=== PATIENT | male | born 1985 | race Caucasian/White ===

== ENCOUNTER 2017-11-04 02:44 | Emergency (ER) | payer BC, SELFPAY ==
[2017-11-04] MEDS ORDERED: Ketorolac Tromethamine 30 MG/ML VIAL ONE (03:12)
== END 2017-11-04 03:31 | disposition home or self-care (01) ==
LOC: SCSER 02:44
DX: G56.91 Unspecified mononeuropathy of right upper limb (principal); F17.210 Nicotine dependence, cigarettes, uncomplicated
CPT/HCPCS: 96372; J1885

== ENCOUNTER 2018-07-09 01:04 | Observation (INO) | payer SELFPAY ==
[2018-07-09] MEDS ORDERED: Fentanyl 100 MCG/2 ML VIAL ONE ×4 (02:05→12:38)
[2018-07-09] MEDS ORDERED: Morphine 4 MG/ML Carpuject ONE ×2 (02:30→02:52)
[2018-07-09 03:01] LABS: Hemoglobin 15.9 g/dL (14.0-18.0); Mean Corpuscular HGB CONC 33.6 g/dL (32.0-36.0); Mean Corpuscular Hemoglobin 28.7 pg (27.0-31.0); Mean Corpuscular Volume 85.6 fL (78.0-98.0); Mean Platelet Volume 7.7 fL (7.4-10.4); Platelet Count 260 thou/uL (130-400); RBC Distribution Width 12.5 % (11.5-14.5); Red Blood Cell (RBC) Count 5.53 mill/uL (4.70-6.10)
[2018-07-09 03:03] LABS: ALT (SGPT) 11 U/L (8-55); AST (SGOT) 21 U/L (5-34); Albumin 4.6 g/dL (3.5-5.0); Alkaline Phosphatase 104 U/L (40-150); Anion Gap 17 mmol/L (10-20); BUN (Urea Nitrogen) 8 mg/dL (8.9-20.6); Bilirubin, Total 0.3 mg/dL (0.2-1.2); Calc. Creatinine Clearance 0 mL/min (70-130); Calcium 9.6 mg/dL (7.8-10.44); Carbon Dioxide 25 mmol/L (22-29); Chloride 104 mmol/L (98-107); Estimated GFR-MDRD 86; Globulin 3.2 g/dL (2.4-3.5); Glucose 95 mg/dL (70-105); Protein, Total 7.8 g/dL (6.0-8.3); Sodium 142 mmol/L (136-145)
[2018-07-09 03:08] LABS: Band 6 % (5-11); Eosinophils 1 % (0-10); Lymphocytes 9 % (21-51); MDiff Complete? YES; Monocytes 3 % (0-10); Neutrophil 81 % (42-75)
[2018-07-09] MEDS ORDERED: Ondansetron ODT 4 MG TAB PO PRN (04:03)
[2018-07-09] MEDS ORDERED: Morphine 2 MG/ML SYRINGE SLOW IVP PRN (04:03)
[2018-07-09] MEDS ORDERED: Dextrose 5% in Water 1,000 ML IV PRN (04:03)
[2018-07-09] MEDS ORDERED: Dextrose 50% Abboject 50 ML SYRINGE SLOW IVP PRN (04:03)
[2018-07-09] MEDS ORDERED: Ondansetron PF 4 MG/2 ML Vial IVP PRN (04:03)
[2018-07-09] MEDS ORDERED: traMADol HCl 50 MG TAB PO PRN (04:03)
[2018-07-09] MEDS ORDERED: Dextrose 5 %-0.45 % NaCl 1,000 ML IV SCH (04:05)
[2018-07-09] MEDS: Morphine 4 MG/ML VIAL IV PRN ×2 (04:31→08:33)
[2018-07-09] MEDS: Sodium Chloride 0.9% 1,000 ML IV SCH ×2 (04:32→12:41)
[2018-07-09] MEDS: traMADol HCl 50 MG TAB PO SCH ×2 (06:49→12:41)
[2018-07-09] MEDS: Acetaminophen 500 MG TAB PO SCH ×2 (06:49→12:40)
[2018-07-09] MEDS: Ketorolac Tromethamine 30 MG/ML VIAL IVP SCH ×2 (06:51→12:41)
--- NOTE | 2018-07-09 06:51 | HP ---
TRAUMA SURGEON: Dr. Cabrera. TRAUMA ACTIVATION: Not applicable. HISTORY OF PRESENT ILLNESS: Beto Ortega is a 33-year-old male, who presented to [facility] Emergency Room status post fall from a tree. 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 The patient denies head trauma or loss of consciousness. He further denies trauma or pain to any other part of his body. He was seen and evaluated in [facility] Emergency Room and found to have an isolated left ankle fracture. Orthopedic Surgery was notified and asked Trauma Services for admission. We planned for operative intervention later today. Upon my evaluation, the patient has a chief complaint of left lower extremity pain. The pain is worsened with movement and relieved with rest. PAST MEDICAL HISTORY: ALLERGIES: NONE. HOME MEDICATIONS: None. CHRONIC MEDICAL ILLNESSES: Depression. PAST SURGICAL HISTORY: Surgical repair of jaw as a teenager. SOCIAL HISTORY: Lives with . 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 Endorses alcohol use on weekends. He is a current half-pack per day smoker x20 years and endorses occasional marijuana use. FAMILY HISTORY: The patient denies any family history of any chronic medical problems. REVIEW OF SYSTEMS: A 10-point review of systems is performed and negative except as indicated in HPI. PHYSICAL EXAMINATION: VITAL SIGNS: On evaluation, blood pressure 121/83, pulse 103, respirations 16, and O2 saturation 99% on room air. GENERAL: Well-developed young male, in no acute distress, resting in bed. HEAD: Normocephalic, atraumatic. EYES: Pupils are PERRL. Extraocular movements are intact. NECK: Supple. Trachea is midline. There is no midline tenderness to palpation. CHEST: Atraumatic. Nontender to palpation. Normal work of breathing, symmetric rise. LUNGS: Clear to auscultation bilaterally. CARDIOVASCULAR: Tachycardic. No obvious murmurs, rubs, or gallops. GI: Abdomen is soft, nontender, and nondistended. MUSCULOSKELETAL: Moves all extremities x4. EXTREMITIES: Bilateral upper extremities within normal limits. Back exam is reported as being within normal limits. Right lower extremity is within normal limits. Left lower extremity with obvious swelling and ecchymosis of the bilateral malleolus. Dorsalis pedis pulses intact. He is neurovascularly intact except for the site of his injury. NEUROLOGIC: GCS is 15. No focal deficit is noted. LABORATORY FINDINGS: WBC 21.0, hemoglobin 15.9, hematocrit 47.4, and platelet count 260. Sodium 142, potassium 4.0, chloride 104, carbon dioxide 25, BUN 8, creatinine 1.0, glucose 95. AST and ALT within normal limits. RADIOGRAPHIC FINDINGS: X-ray of the tibia and fibula with distal fibular and tibia fracture. Official read is pending. Ankle x-ray, official read is pending, demonstrates distal tib-fib fracture. ASSESSMENT: 1. Status post fall from a tree. 2. Left ankle fracture. 3. Acute traumatic pain. 4. History of depression. PLAN: Admit to Trauma Services. The patient will be n.p.o. at this time. Gentle IV fluid hydration. Orthopedic Surgery has been contacted by the emergency room and plans for operative intervention later today. Postoperative PT/crutch training. Pain management with p.o. and IV analgesics. DVT and gastritis prophylaxis as appropriate. Plan for admission was discussed with the patient and family, who both vocalized their understanding. All questions were answered at the time of this dictation. Trauma attending has been notified of admission. Job ID: [id number]
[2018-07-09 07:31] VITALS: BMI 22.1
--- NOTE | 2018-07-09 09:06 | PRG ---
DATE OF SERVICE: 07/09/2018 Please see Berta Soria's full H and P for details. Mr. Ortega is on for ORIF of left ankle fracture today by Dr. Suh. Trauma team will continue to follow. Job ID: [id number]
[2018-07-09] MEDS ORDERED: CEFAZOLIN/Water 2 GM/20 ML SYRINGE SLOW IVP SCH ×2 (09:30→15:00)
--- NOTE | 2018-07-09 09:34 | RAD ---
TWO VIEWS OF THE LEFT TIBIA/FIBULA: COMPARISON: None. HISTORY: Ankle pain after falling from a tree. FINDINGS: Three views of the left ankle show a spiral fracture of the distal aspect of the fibula. There is al so a fracture of the medial malleolus. There is slight displacement of the ankle mortise. The later al radiograph may show a posterior malleolus fracture. IMPRESSION: Trimalleolar left ankle fracture. POS: [facility]
--- NOTE | 2018-07-09 09:55 | RAD ---
THREE VIEWS OF THE LEFT ANKLE: History Fall from a tree with left ankle pain. FINDINGS: Three views of the left ankle show a spiral fracture of the distal fibula. There is a medial malleol us fracture. There also appears to be a fracture of the posterior malleolus. There is slight malali gnment of the tibiotalar joint. IMPRESSION: Trimalleolar left ankle fracture. POS: [facility]
[2018-07-09] MEDS ORDERED: Ketorolac Tromethamine 30 MG/ML VIAL ONE (09:57)
[2018-07-09] MEDS ORDERED: Ondansetron PF 4 MG/2 ML Vial ONE (09:57)
[2018-07-09] MEDS ORDERED: PROPOFOL 200 MG/20 ML VIAL ONE (09:57)
[2018-07-09] MEDS ORDERED: Dexamethasone 20 MG/5 ML VIAL ONE (09:57)
[2018-07-09] MEDS ORDERED: Lidocaine 1% PF 5 ML VIAL ONE (09:57)
[2018-07-09] MEDS ORDERED: CEFAZOLIN 2 GM/50 ML-DEXTROSE 2 GM in Premix Bag 1 BAG IVPB SCH ×2 (10:00→18:00)
[2018-07-09] MEDS ORDERED: CEFAZOLIN 2 GM/50 ML BAG ONE (10:01)
[2018-07-09] MEDS ORDERED: Bupivacaine 0.25% HCL 30 ML VIAL ONE (12:15)
[2018-07-09] MEDS ORDERED: Bupivacaine PF 0.5% 30 ML VIAL ONE (12:15)
[2018-07-09] MEDS ORDERED: Ondansetron HCl/PF 4 MG/2 ML Vial IVP PRN (12:37)
[2018-07-09] MEDS ORDERED: Promethazine HCl 25 MG/ML VIAL SLOW IVP PRN (12:37)
[2018-07-09] MEDS ORDERED: Promethazine HCl 25 MG/ML VIAL IM PRN (12:37)
--- NOTE | 2018-07-09 12:46 | CON ---
DATE OF CONSULTATION: 07/09/2018 REASON FOR CONSULTATION: Left ankle fracture. REQUESTING PHYSICIAN: Trauma Services. CONSULTING PHYSICIAN: Martínez Suh MD HISTORY OF PRESENT ILLNESS: This is a 33-year-old male, who presented to the [facility] Emergency Room status post fall from a tree last night. Per the patient, he was climbing a tree while attending a [employer] event. 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 He landed on his left ankle. He denies any other loss of consciousness or any other injury. He was seen and evaluated in [facility] and found to have an isolated left ankle fracture. He has been transferred to our facility and our services has been consulted. Upon our evaluation at bedside, the patient complaints only of left lower extremity pain. A splint has been applied in the emergency department. PAST MEDICAL HISTORY: The patient denies. ALLERGIES: NONE. PAST SURGICAL HISTORY: Surgical repair of his jaw as a teenager. SOCIAL HISTORY: The patient lives with his . 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 He drinks socially on weekends. He is a current half pack a day smoker over the last 20 years and occasionally endorses marijuana use. FAMILY HISTORY: Reviewed and noncontributory. REVIEW OF SYSTEMS: Ten-point review of system conducted and otherwise negative except for stated above. PHYSICAL EXAMINATION: VITAL SIGNS: Temperature 98.3, pulse 94, respiratory rate 16, and blood pressure 123/70. GENERAL: The patient is awake and alert. He is in no apparent stress. He is pleasant and cooperative with the exam findings today. The patient seen in conjunction with Dr. Suh. HEENT: Head is normocephalic and atraumatic. NECK: Supple. Trachea midline. Breathing is nonlabored. EXTREMITIES: The left lower extremity was evaluated. There is a short leg splint intact. SKIN: Free of lesions and rashes at the splint edges. The patient has movement in the toes. Sensation intact in the toes. Capillary refill 2 seconds. EXTREMITY: Otherwise negative except for stated above. RADIOGRAPHIC FINDINGS: Including views of the left ankle showed evidence of a displaced trimalleolar ankle fracture. ASSESSMENT: Left ankle trimalleolar fracture. PLAN: Surgical intervention discussed at length with the patient today. In order to restore anatomical alignment and promote mobility, we will plan for an open reduction internal fixation of his left ankle fracture today. He verbalizes understanding and is amenable to this. Risks, benefits, and alternatives were discussed at length. We will plan for surgery today. Once the patient is crutch trained and received antibiotics, he may be discharged home to follow up in the orthopedic clinic. Job ID: [id number]
--- NOTE | 2018-07-09 13:28 | RAD ---
THREE VIEWS OF THE LEFT ANKLE: COMPARISON: 07/09/2018. HISTORY: Trimalleolar ankle fracture . FINDINGS/IMPRESSION: Three limited intraoperative fluoroscopic views of the left ankle were submitted for interpretation. The patient is status post plate and screw fixation of the distal fibula fracture. Two screws also span the fracture of the medial malleolus. There is better alignment of the ankle mortise. POS: [facility]
[2018-07-09 15:30] VITALS: BP 124/81; TEMP 98
--- NOTE | 2018-07-10 11:56 | OP ---
DATE OF PROCEDURE: 07/09/2018 PREOPERATIVE DIAGNOSIS: Trimalleolar fracture, left. POSTOPERATIVE DIAGNOSIS: Trimalleolar fracture, left. [employer] APPRENTICE: Carly Foy PA-C ESTIMATED BLOOD LOSS: Minimal. SPECIMENS: None. DRAINS: None. COMPLICATIONS: None. DESCRIPTION OF PROCEDURE: The patient was taken to the operating room, where general anesthesia was induced. He received Ancef preoperatively. Left foot was prepped and draped in sterile fashion. After exsanguinated, the tourniquet was inflated to 300 mmHg. I made a longitudinal incision, the dissection was carried down to the fibula and subsegmental fracture. I the distal two fragments together and then cleaned the hematoma from the fracture site, anatomically reduced the middle fragment to the proximal fibula. Held this with clamps and a 10-hole plate. Screw was inserted in the usual technique with anatomic reduction. The medial side was exposed with a longitudinal incision. Dissection was carried down to the fracture. The fracture was distracted. Irrigation was performed over mid periosteum. The fracture was anatomically reduced. Two K-wires and the cannulated screws were placed and two 4.0 mm partially-threaded 4.0 cancellous screws were placed across the fracture site which are Synthes screws. Anatomic reduction was confirmed. Tourniquet was released. Irrigation was performed. Hemostasis was obtained. Subcutaneous tissue was closed with 2-0 Vicryl. Skin was closed with umair. Sterile dressing was applied after injecting with Marcaine. There were no complications. Job ID: [id number]
== END 2018-07-09 15:47 | disposition home or self-care (01) ==
LOC: SCSER 01:04 → SURG B 02:00 → INTOOBSV 02:00
PROVIDERS: ADMIT Surgery; ATTEND Surgery
PROC: 0QSK04Z Reposition Left Fibula with Internal Fixation Device, Open Approach (ICD-10-PCS; principal; 2018-07-09)
PROC: 0QSH04Z Reposition Left Tibia with Internal Fixation Device, Open Approach (ICD-10-PCS; 2018-07-09)
DX: S82.852A Displaced trimalleolar fracture of left lower leg, initial encounter for closed fracture (principal); F17.210 Nicotine dependence, cigarettes, uncomplicated; F32.9 Major depressive disorder, single episode, unspecified; G89.11 Acute pain due to trauma; W14.XXXA Fall from tree, initial encounter
CPT/HCPCS: 27818; 76001; 80053; 85025; 96361; 96365; 96374; 96375; 96376; C1713; C1769; G0378; G8978-GP-CI; G8979-GP-CI; G8980-GP-CI; J1100; J1885; J2001; J2270; J2405; J2704; J3010; S0020

== ENCOUNTER 2022-01-12 19:48 | Emergency (ER) | payer SELFPAY ==
[~2022-01-12 19:48] MED LIST: ISOVUE-370 76%-LOCM 1 ML ONE
[2022-01-12] MEDS ORDERED: Lidocaine 1% w/Epinephrine 1:100K 20 ML VIAL ONE (20:07)
[2022-01-12 20:22] LABS: #Eosinphils 0.3 thou/uL (0.0-0.7); #Monocytes 1.4 thou/uL (0.11-0.59); #Neutrophils 6.7 thou/uL (1.40-6.50); %Basophils 0.4 % (0.0-1.0); %Eosinophils 2.6 % (0.0-10.0); %Lymphocytes 26.1 % (21.0-51.0); %Monocytes 12.2 % (0.0-10.0); %Neutrophils 58.7 % (42.0-75.0); Hemoglobin 15.3 g/dL (14.0-18.0); Mean Corpuscular Hemoglobin 30.6 pg (27.0-31.0); Mean Corpuscular Volume 92.5 fL (78.0-98.0); Mean Platelet Volume 7.7 fL (7.4-10.4); Platelet Count 267 thou/uL (130-400); RBC Distribution Width 12.1 % (11.5-14.5); White Blood Cell (WBC) Count 11.4 thou/uL (4.8-10.8)
[2022-01-12] MEDS ORDERED: Boostrix 0.5 ML (Tdap) VIAL ONE (20:23)
[2022-01-12 20:48] LABS: Anion Gap 14 mmol/L (10-20); BUN (Urea Nitrogen) 18 mg/dL (8.9-20.6); Calc. Creatinine Clearance 0 mL/min (70-130); Calcium 9.5 mg/dL (7.8-10.44); Carbon Dioxide 29 mmol/L (22-29); Chloride 99 mmol/L (98-107); Glucose 77 mg/dL (70-105); Potassium 3.6 mmol/L (3.5-5.1); Sodium 138 mmol/L (136-145)
[2022-01-12] MEDS ORDERED: Sulfameth/Trimethoprim DS 800-160mg TAB ONE (21:41)
[2022-01-12] MEDS ORDERED: Cephalexin 250 MG CAP ONE (21:41)
== END 2022-01-12 21:46 | disposition home or self-care (01) ==
LOC: ERS 19:48
DX: S71.131A Puncture wound without foreign body, right thigh, initial encounter (principal); L03.115 Cellulitis of right lower limb; W34.00XA Accidental discharge from unspecified firearms or gun, initial encounter; Z23 Encounter for immunization
CPT/HCPCS: 10060; 80048; 85025; 90471; 90715; Q9966

== ENCOUNTER 2022-11-18 00:05 | Emergency (ER) | payer SELFPAY ==
[2022-11-18 01:09] LABS: #Basophils 0.1 thou/uL (0.0-0.2); #Eosinphils 0.2 thou/uL (0.0-0.7); #Lymphocytes 2.1 thou/uL (1.20-3.40); #Monocytes 1.2 thou/uL (0.11-0.59); #Neutrophils 10.3 thou/uL (1.40-6.50); %Basophils 0.4 % (0.0-1.0); %Eosinophils 1.2 % (0.0-10.0); %Lymphocytes 15.3 % (21.0-51.0); %Monocytes 8.6 % (0.0-10.0); %Neutrophils 74.5 % (42.0-75.0); Mean Corpuscular HGB CONC 34.7 g/dL (32.0-36.0); Mean Corpuscular Hemoglobin 31.8 pg (27.0-31.0); Mean Corpuscular Volume 91.6 fl (78.0-98.0); Mean Platelet Volume 7.7 fL (7.4-10.4); Platelet Count 260 10x3/uL (130-400); RBC Distribution Width 12.1 % (11.5-14.5); Red Blood Cell (RBC) Count 4.71 mill/uL (4.70-6.10); White Blood Cell (WBC) Count 13.8 10x3/uL (4.8-10.8)
[2022-11-18 01:28] LABS: ALT (SGPT) 38 U/L (8-55); AST (SGOT) 21 U/L (5-34); Albumin 4.3 g/dL (3.5-5.0); Alkaline Phosphatase 82 U/L (40-110); Anion Gap 13 mmol/L (10-20); BUN (Urea Nitrogen) 13 mg/dL (8.9-20.6); Bilirubin, Total 0.4 mg/dL (0.2-1.2); Calc. Creatinine Clearance 0 mL/min (70-130); Calcium 9.6 mg/dL (7.8-10.44); Carbon Dioxide 28 mmol/L (22-29); Chloride 104 mmol/L (98-107); Estimated GFR 82; Globulin 3.1 g/dL (2.4-3.5); Glucose 88 mg/dL (70-105); Potassium 4.2 mmol/L (3.5-5.1); Protein, Total 7.4 g/dL (6.0-8.3); Sodium 141 mmol/L (136-145)
== END 2022-11-18 01:47 | disposition home or self-care (01) ==
LOC: ERS 00:05
DX: L03.319 Cellulitis of trunk, unspecified (principal)
CPT/HCPCS: 80053; 85025; 87040; 99283